=== PATIENT | female | born 1950 | race Caucasian/White ===

== ENCOUNTER 2018-12-04 07:12 | Inpatient (IN) | payer MEDICARE ==
[~2018-12-04] VITALS: Ht 162.6 cm; Wt 57.2 kg
[~2018-12-04 07:12] MED LIST: ALPR0.5T PO; PROP20TA7 PO; QUET150T2 PO; VENL150C2 PO; VERA180T25 PO
--- NOTE | 2018-12-04 07:12 | NUR ---
KYRA RA FROM HOME,CONSTIPATED DUE TO PAIN MEDICATIONS, FOR A SPINE SX NEXT WEEK, BLOOD NOTED IN HER STOOL THIS AM PROMPTING HER TO CALL 911. TO ER BED 6, HOOKED TO MONITOR, CHANGED TO GOWN, PROVIDED W WARM BLANKET, AWAITING MD DAHL.
--- NOTE | 2018-12-04 07:30 | NUR ---
DR BELTRÁN AT BEDSIDE
[2018-12-04 08:00] LABS: BASOPHILS % (AUTO) 0.3 % (0.0-2.0); EOSINOPHILS % (AUTO) 0.1 % (0.0-6.0); HEMATOCRIT 36 % (33-45); HEMOGLOBIN 12.6 g/dL (11.5-14.8); LYMPHOCYTES # (AUTO) 0.4 /CMM (0.8-4.8); LYMPHOCYTES % (AUTO) 4.6 % (20.0-44.0); MEAN CORPUSCULAR HGB CONC 35 g/dl (31.0-36.0); MEAN CORPUSCULAR VOLUME 98 fL (82-100); MONOCYTES # (AUTO) 0.8 /CMM (0.1-1.30); NEUTROPHILS # (AUTO) 8.3 /CMM (1.8-8.9); PLATELET COUNT (AUTO) 144 /CMM (150-450); RED BLOOD CELL COUNT(AUTO) 3.73 MIL/uL (4.0-5.2); WHITE BLOOD COUNT (AUTO) 9.5 K/uL (4.3-11.0)
[2018-12-04] MEDS ORDERED: IV NS 0.9% 1,000 ML BAG IV ONE (08:00)
--- NOTE | 2018-12-04 08:07 | NUR ---
PT WHEELED OUT VIA Influx FOR CT SCAN.
[2018-12-04 08:09] LABS: CALCIUM, SERUM 8.8 mg/dL (8.5-10.1); CREATININE 0.8 mg/dL (0.6-1.3)
[2018-12-04 08:14] LABS: ALBUMIN 3.4 g/dL (3.4-5.0); BILIRUBIN,DIRECT 0.1 mg/dL (0.0-0.2); BILIRUBIN,TOTAL 0.5 mg/dL (0.2-1.0); TOTAL PROTEIN, SERUM 6.2 g/dL (6.4-8.2)
[2018-12-04] MEDS ORDERED: ONDANSETRON HCL/PF 4 MG/2 ML VIAL IVP ONE (09:00)
[2018-12-04] MEDS ORDERED: PIPERACILLIN /TAZOBACTAM 3.375 G in IV D5W 50 ML IV ONE (09:00)
[2018-12-04] MEDS ORDERED: HYDROMORPHONE 1 MG/1 ML DISP.SYRIN IV ONE (09:00)
[2018-12-04] MEDS ORDERED: HYDROMORPHONE 1 MG/1 ML DISP.SYRIN ONE ×2 (09:05→09:09)
[2018-12-04] MEDS ORDERED: ONDANSETRON HCL/PF 4 MG/2 ML VIAL ONE ×2 (09:05→09:08)
--- NOTE | 2018-12-04 10:37 | NUR ---
REPORT GIVEN TO MS QUINTANILLA OF TELE UNIT
--- NOTE | 2018-12-04 11:30 | NUR ---
PT WHEELED OUT VIA GURNEY BY AN EMT. TRANSFERRED TO MS UNIT
--- NOTE | 2018-12-04 11:40 | NUR ---
ms rn received a new admission,68 year old female, came in w/ cc of abdominal pain w/ dx of colitis, under dr. lamb, awake,alert,oriented x4, not in any form of distress, respirations even and unlabored,no sob noted, will monitor patient's condition.
[2018-12-04 12:00] VITALS: BP 126/80
[2018-12-04] MEDS ORDERED: SUMA50TA17 PO (13:53)
[2018-12-04] MEDS ORDERED: SUMA100T16 PO (13:53)
[2018-12-04] MEDS ORDERED: Z GUARD REMEDY 2 OZ OINT TP PRN (14:30)
[2018-12-04] MEDS ORDERED: ONDANSETRON HCL/PF 4 MG/2 ML VIAL IVP PRN (14:30)
[2018-12-04] MEDS ORDERED: ACETAMINOPHEN 325 MG TABLET PO PRN (14:30)
[2018-12-04] MEDS: SUMATRIPTAN SUCCINATE 100 MG TABLET PO PRN (15:44)
[2018-12-04 16:00] VITALS: BP 121/79
--- NOTE | 2018-12-04 16:00 | NUR ---
ms international operations manager done w/ orders from zainab gil.
[2018-12-04] MEDS: PANTOPRAZOLE 40 MG VIAL IV SCH (17:47)
[2018-12-04] MEDS: PROPRANOLOL HCL 10 MG TABLET PO SCH (17:50)
--- NOTE | 2018-12-04 18:00 | NUR ---
ms rn due meds given,tolerated well.
[2018-12-04 18:17] LABS: BASOPHILS # (AUTO) 0.1 /CMM (0.0-0.2); BASOPHILS % (AUTO) 0.8 % (0.0-2.0); EOSINOPHILS % (AUTO) 0.7 % (0.0-6.0); HEMATOCRIT 37 % (33-45); HEMOGLOBIN 12.6 g/dL (11.5-14.8); LYMPHOCYTES # (AUTO) 0.9 /CMM (0.8-4.8); LYMPHOCYTES % (AUTO) 9.6 % (20.0-44.0); MEAN CORPUSCULAR HGB CONC 34 g/dl (31.0-36.0); MEAN CORPUSCULAR VOLUME 99 fL (82-100); MONOCYTES # (AUTO) 0.7 /CMM (0.1-1.30); MONOCYTES % (AUTO) 7.8 % (2.0-12.0); NEUTROPHILS # (AUTO) 7.5 /CMM (1.8-8.9); NEUTROPHILS % (AUTO) 81.1 % (43.0-81.0); PLATELET COUNT (AUTO) 140 /CMM (150-450); RED BLOOD CELL COUNT(AUTO) 3.77 MIL/uL (4.0-5.2); WHITE BLOOD COUNT (AUTO) 9.3 K/uL (4.3-11.0)
[2018-12-04 18:21] LABS: APPEARANCE,URINE CLEAR (CLEAR); BILIRUBIN,URINE NEGATIVE (NEGATIVE); BLOOD, URINE NEGATIVE Ery/uL (NEGATIVE); KETONES,URINE NEGATIVE (NEGATIVE); LEUKOCYTE ESTERASE ,URINE 1+ (NEGATIVE); NITRITE, URINE POSITIVE (NEGATIVE); PH,URINE 6.5 (5.0-8.0); PROTEIN,URINE NEGATIVE (NEGATIVE); UGLUCOSE NEGATIVE (NEGATIVE); UROBILINOGEN,URINE 0.2 EU/dL (0.2)
[2018-12-04 18:22] LABS: COLOR,URINE Light yellow (YELLOW)
[2018-12-04 18:48] LABS: BACTERIA,URINE Rare /HPF (None Seen); RBC,URINE 0-2 /HPF (0-2); SQUAMOUS EPITHELIAL CELL,UR Few /HPF (None Seen)
--- NOTE | 2018-12-04 19:25 | NUR ---
ms rn on bed, no distress noted, all needs attended, gave report to work distributor.
--- NOTE | 2018-12-04 19:50 | NUR ---
RN OPENING NOTES RECEIVED REPORT FROM DAYSHIFT RNLATISHA. FOUND Pt AWAKE, RESTING IN BED. Pt IS A/OX4, VERBAL, ABLE TO MAKE NEEDS KNOWN. NO S/S OF ACUTE DISTRESS OR SOB NOTED. IV ACCESS ON L HAND #20G, SL. SAFETY MEASURES IN PLACE. BED LOW, LOCKED, HOB ELEVATED, SIDE RAILS UP, CALL LIGHT AND BEDSIDE TABLE WITHIN REACH. WILL CONTINUE TO MONITOR Pt's CONDITION AND SAFETY THROUGHOUT THE NIGHT.
[2018-12-04 20:00] VITALS: BP 142/82
[2018-12-04 20:30] VITALS: BP 142/82
[2018-12-04] MEDS: ALPRAZOLAM 0.5 MG TABLET PO SCH (21:55)
[2018-12-04] MEDS: MAGNESIUM HYDROXIDE 30 ML UDC PO PRN (21:55)
--- NOTE | 2018-12-05 07:26 | NUR ---
RN CLOSING NOTES NO SIGNIFICANT CHANGES IN Pt's CONDITION. Pt IS STABLE AT THIS TIME. NO S/S OF ACUTE DISTRESS OR SOB NOTED DURING THE SHIFT. Pt IS RESTING IN BED COMFORTABLY. RESPIRATIONS EVEN AND UNLABORED. ALL NEEDS MET AND ATTENDED TO. SAFETY MEASURES IN PLACE. WILL ENDORSE TO DAYSHIFT RN FOR Pt's NILSON.
[2018-12-05 07:36] LABS: BASOPHILS % (AUTO) 0.3 % (0.0-2.0); HEMATOCRIT 39 % (33-45); HEMOGLOBIN 13.2 g/dL (11.5-14.8); LYMPHOCYTES # (AUTO) 0.6 /CMM (0.8-4.8); LYMPHOCYTES % (AUTO) 8.1 % (20.0-44.0); MEAN CORPUSCULAR HGB CONC 34 g/dl (31.0-36.0); MEAN CORPUSCULAR VOLUME 99 fL (82-100); MONOCYTES # (AUTO) 0.5 /CMM (0.1-1.30); MONOCYTES % (AUTO) 6.3 % (2.0-12.0); NEUTROPHILS # (AUTO) 6.2 /CMM (1.8-8.9); NEUTROPHILS % (AUTO) 84.3 % (43.0-81.0); PLATELET COUNT (AUTO) 147 /CMM (150-450); RED BLOOD CELL COUNT(AUTO) 3.96 MIL/uL (4.0-5.2); WHITE BLOOD COUNT (AUTO) 7.4 K/uL (4.3-11.0)
[2018-12-05 07:52] LABS: CALCIUM, SERUM 9.2 mg/dL (8.5-10.1); CREATININE 0.6 mg/dL (0.6-1.3); MAGNESIUM 2.3 mg/dL (1.8-2.4); PHOSPHORUS 2.6 mg/dL (2.5-4.9); POTASSIUM 4.3 mmol/L (3.5-5.1)
[2018-12-05 08:00] VITALS: BP 154/89
[2018-12-05] MEDS: PROPRANOLOL HCL 10 MG TABLET PO SCH ×2 (09:04→17:30)
[2018-12-05] MEDS: VENLAFAXINE XR 150 MG CAP.SR.24H PO SCH (09:05)
[2018-12-05 09:24] VITALS: BP 154/89
[2018-12-05] MEDS: MAGNESIUM HYDROXIDE 30 ML UDC PO PRN ×2 (10:28→22:17)
[2018-12-05] MEDS ORDERED: MAGNESIUM CITRATE 296 ML BOTTLE PO ONE (13:30)
[2018-12-05] MEDS ORDERED: PEG 3350/NA SULF,BICARB,CL/KCL 4,000 ML BOTTLE PO ONE (13:30)
[2018-12-05] MEDS ORDERED: NA PHOS,M-B/NA PHOS,DI-BA 1 EA ENEMA RC PRN (13:30)
--- NOTE | 2018-12-05 14:30 | NUR ---
PATIENT STARTED ON GOLYTELY
[2018-12-05 16:00] VITALS: BP 153/76
[2018-12-05 17:28] LABS: OCCULT BLOOD STOOL POSITIVE (NEGATIVE)
[2018-12-05] MEDS: hydrALAZINE HCL 25 MG TABLET PO SCH (17:30)
--- NOTE | 2018-12-05 17:55 | NUR ---
PATIENT ACCIDENTALLY PULED OUT IV LINE.
[2018-12-05] MEDS: PANTOPRAZOLE 40 MG VIAL IV SCH (18:08)
--- NOTE | 2018-12-05 19:04 | NUR ---
PATIENT A/OX4 , STABLE ON ROOM AIR . PATIENT WILL HAVE COLONOSCOPY AND EGD TOMORROW IN AM. NPO AFTER MIDNIGHT. PT CONSUMED 1/3 OF GOLYTELY AND HAD LOOSE DARK BM X8. WILL ENDORSE TO NEXT SHIFT FOR NILSON
--- NOTE | 2018-12-05 19:15 | NUR ---
MS RN OPENING NOTES Received patient A/O x4, awake, on left lateral position on bed. Denies discomfort at this time. On RA, no SOB/respiratory distress noted at this time. Patient noted ambulatory, self-care independent, refused assistance. With commode at bedside. On prep for colonoscopy tomorrow. With frequent small liquid stool noted. Kept bed low and locked, call light within easy reach. No IV meds at this time. For IV line insertion. Patient drinks fluid independently. Will continue to monitor accordingly.
[2018-12-05 20:00] VITALS: BP 136/96
[2018-12-05 20:06] VITALS: BP 136/96
--- NOTE | 2018-12-05 20:28 | NUR ---
MS RN NOTES Collected stool for ova & parasite exam as ordered. Notified laboratory, spoke with Uriel, that sample is ready for picker tender helper. Placed in storage accordingly.
[2018-12-05] MEDS: ALPRAZOLAM 0.5 MG TABLET PO SCH (21:19)
[2018-12-05] MEDS: QUETIAPINE FUMARATE 100 MG TABLET PO SCH (21:19)
[2018-12-05] MEDS: SUMATRIPTAN SUCCINATE 100 MG TABLET PO PRN (21:28)
--- NOTE | 2018-12-05 22:00 | NUR ---
Patient is alert and pleasant,lives locally with family. She is ambulatory and independent with adl's. Has no DME or homehealth reported. Spouse will provide ride when discharge. Addendum: 12/05/18 at 2200 by REJI CONNOR RN Amended: Links added.
[2018-12-05] MEDS: ZOLPIDEM TARTRATE 5 MG TABLET PO PRN (22:17)
--- NOTE | 2018-12-06 05:00 | NUR ---
MS RN NOTES Patient is disturb of the roommate's disruptive behavior. Room changed to [facility]. Patient feeling comfortable in the new room. Secured patient's belongings at bedside accounted and transfer to [facility]. Kept patient comfortable on bed, call light within easy reach. Will continue to monitor accordingly.
--- NOTE | 2018-12-06 05:39 | NUR ---
MS RN NOTES Patient complaint her heart is racing. Assessed the patient's V/S BP 173/97mmHg, FL 112bpm. RR 20, regular, SpO2 97%. Patient denies N/V, dizziness. Skin warm and dry. Patient complaint generalized abdominal pain 01/26. Patient remained on NPO, with Golytely prep for colonoscopy scheduled today. Sent a page to bus person MD, Dr. Madisyn Walls. Awaiting for call back at this time.
--- NOTE | 2018-12-06 07:00 | NUR ---
RECEIVED PATIENT IN BED , BP 170/89 HR 104. PATIENT COMPLAINS OF CHEST PAIN
--- NOTE | 2018-12-06 07:01 | NUR ---
MS RN CLOSING NOTES Patient noted asleep at this time. Remained on RA, no dyspnea/respiratory distress noted. All nursing needs attended. Due meds given as ordered. No ASE noted. Able to finish the golytely prep with clear stool noted. For Colonoscopy today. Endorsed to the next shift with the possible order of PRN BP and pain meds.
--- NOTE | 2018-12-06 07:20 | NUR ---
PATIENT SEEN BY
[2018-12-06 08:00] VITALS: BP_SYST 145; BP_SYST 170; BP_DIAS 96
[2018-12-06] MEDS: hydrALAZINE HCL 25 MG TABLET PO SCH ×3 (08:11→17:09)
[2018-12-06] MEDS: VENLAFAXINE XR 150 MG CAP.SR.24H PO SCH (08:11)
[2018-12-06] MEDS: PROPRANOLOL HCL 10 MG TABLET PO SCH ×3 (08:11→17:10)
[2018-12-06] MEDS: NITROGLYCERIN 30 GM TUBE TP SCH ×2 (10:35→21:17)
[2018-12-06] MEDS ORDERED: ANESTHESIA TRAY IN PYXIS 1 EA TRAY MC ONE (12:25)
--- NOTE | 2018-12-06 14:00 | NUR ---
patient back to room from OR. Patient awake a/o x3 , vs are stable and within normal range. Resume previous diet and orders.
[2018-12-06 16:00] VITALS: BP 118/70
[2018-12-06] MEDS: PANTOPRAZOLE 40 MG VIAL IV SCH (17:10)
--- NOTE | 2018-12-06 18:29 | NUR ---
PATIENT RESTING IN BED , FRIEND AT BEDSIDE. PT TOLERATED CLEAR LIQUID DIET. ALL NEEDS ATTENDED. NO COMPLAIN OF PAIN OR DISCOMFORT. IV LINE INTACT AND PATENT. WILL ENDORSE TO NEXT SHIFT FOR NILSON.
--- NOTE | 2018-12-06 19:30 | NUR ---
MS RN OPENING NOTES Received patient A/O x4, awake on bed, no discomfort noted. On RA, no SOB/respiratory distress noted. With patent peripheral IV line LFA G#20 SL. S/P EGD and colonoscopy. On clear liquid diet. Kept bed low and locked, siderails x2 up, call light within easy reach. Will continue to monitor accordingly.
[2018-12-06 20:00] VITALS: BP 164/82
[2018-12-06] MEDS: ALPRAZOLAM 0.5 MG TABLET PO SCH (21:15)
[2018-12-06] MEDS: QUETIAPINE FUMARATE 100 MG TABLET PO SCH (21:17)
[2018-12-07] MEDS: ZOLPIDEM TARTRATE 5 MG TABLET PO PRN (00:17)
[2018-12-07] MEDS ORDERED: SUMATRIPTAN SUCCINATE 25 MG TABLET ONE (00:45)
--- NOTE | 2018-12-07 06:31 | NUR ---
MS RN CLOSING NOTES Patient noted asleep at this time. Patient noted ambulatory with steady gait, independent in attending personal needs and ADLs. All due meds given as ordered, tolerated well, no ASE noted. Headache noted resolved with PRN Imitrex as ordered. No new complaints made, afebrile the whole shift. Kept bed low and locked, call light within easy reach. Endorsed to the next shift.
--- NOTE | 2018-12-07 07:47 | NUR ---
MS RN OPENING NOTES RECEIVED PT IN BED, AWAKE, A/O X3-4. TOLERATING RA, WITH NO ACUTE RESPIRATORY DISTRESS NOTED. PT DENIES ANY PAIN AT THIS MOMENT. PT CONCERN WHEN CAN SHE GET REAL FOOD AND DISCHARGE. RN TO F/U WITH MD FIRST AND WILL UPDATE PT. PIV TO LFA G20 SL, FLUSHED WITH NS, INTACT AND OPERATIONAL. PT KEPT COMFORTABLE. PT'S BED IN LOWEST, LOCKED POSITION WITH SR X2. CALL LIGHT KEPT WITHIN REACH. WILL CONTINUE PLAN OF CARE.
[2018-12-07 08:00] VITALS: BP 143/110
[2018-12-07] MEDS: VENLAFAXINE XR 150 MG CAP.SR.24H PO SCH (08:35)
[2018-12-07] MEDS: PROPRANOLOL HCL 10 MG TABLET PO SCH ×2 (08:37→12:05)
[2018-12-07] MEDS: hydrALAZINE HCL 25 MG TABLET PO SCH ×2 (08:37→12:04)
[2018-12-07] MEDS ORDERED: VERAPAMIL SR 180 MG TABLET.SA PO SCH (09:00)
[2018-12-07] MEDS: NITROGLYCERIN 30 GM TUBE TP SCH (09:00)
[2018-12-07 12:05] VITALS: BP 154/92
--- NOTE | 2018-12-07 15:20 | NUR ---
WALL CLEANER NOTES PT ALERT/ORIENTED 3-4. TO DISCHARGE HOME ACCOMPANIED BY FRIEND PRESENT BEDSIDE. PT ADVANCE TO REGULAR DIET AT LUNCH TIME AND TOLERATED WELL. REVIEWED AND SIGNED PT'S DISCHARGE INSTRUCTIONS, INVENTORY LIST WITH PT. SKIN INTACT PER PT, NO PHOTOS TAKEN. VS STABLE AND RECORDED. PT WHEELED TO THE LOBBY VIA WHEELCHAIR BY RN AND ACCOMPANIED BY FRIEND. F/U WITH DR. QUINTANILLA IN 1-2 WEEKS REMINDED, CARD GIVEN TO PT. ALL NEEDS AND CARE ATTENDED. PT VERBALIZED GRATEFUL FOR THE CARE STAFFS HAD GIVEN TO HER. PT LEFT TE UNIT AT 1515. MD AND CN AWARE.
== END 2018-12-07 15:10 | disposition home or self-care (01) | DRG 386 ==
LOC: ER 07:14 → MED 10:35
PROVIDERS: ADMIT Internal Medicine; ATTEND Internal Medicine
PROC: 0DB78ZX Excision of Stomach, Pylorus, Via Natural or Artificial Opening Endoscopic, Diagnostic (ICD-10-PCS; principal; 2018-12-06)
PROC: 0DBL8ZX Excision of Transverse Colon, Via Natural or Artificial Opening Endoscopic, Diagnostic (ICD-10-PCS; 2018-12-06)
DX: K51.90 Ulcerative colitis, unspecified, without complications (principal); K56.7 Ileus, unspecified; F31.81 Bipolar II disorder; I10 Essential (primary) hypertension; G25.0 Essential tremor; M41.9 Scoliosis, unspecified; Z98.890 Other specified postprocedural states; Z88.5 Allergy status to narcotic agent; Z88.2 Allergy status to sulfonamides; Z88.8 Allergy status to other drugs, medicaments and biological substances; Z79.899 Other long term (current) drug therapy; Z98.1 Arthrodesis status; Z90.710 Acquired absence of both cervix and uterus; Z87.440 Personal history of urinary (tract) infections; K44.9 Diaphragmatic hernia without obstruction or gangrene; F41.1 Generalized anxiety disorder; T50.905A Adverse effect of unspecified drugs, medicaments and biological substances, initial encounter; Y92.009 Unspecified place in unspecified non-institutional (private) residence as the place of occurrence of the external cause; M47.9 Spondylosis, unspecified; K29.70 Gastritis, unspecified, without bleeding
CPT/HCPCS: 36415; 71045-TC; 80048-TC; 80061-TC; 80076-TC; 81000-TC; 82272-TC; 83605-TC; 83735-TC; 84100-TC; 85025-TC; 85730-TC; 87045-TC; 87081-TC; 87086-TC; 87177; 87209; 88305-TC; 88313-TC; 88342; 89055; 93307-TC; C9113; G0378; J1170; J2405; J2543; J2704; J3490; J7060

== ENCOUNTER 2020-03-18 13:48 | Outpatient (CLI) | payer MEDICARE ==
[~2020-03-18 13:48] MED LIST changes: +SUMA100T16 PO; +SUMA50TA17 PO
[2020-03-18 15:54] LABS: BASOPHILS % (AUTO) 0.5 % (0.0-2.0); EOSINOPHILS % (AUTO) 2.2 % (0.0-6.0); HEMATOCRIT 38 % (33-45); HEMOGLOBIN 12.6 g/dL (11.5-14.8); LYMPHOCYTES # (AUTO) 0.9 /CMM (0.8-4.8); LYMPHOCYTES % (AUTO) 15.4 % (20.0-44.0); MEAN CORPUSCULAR HGB CONC 33 g/dl (31.0-36.0); MEAN CORPUSCULAR VOLUME 98 fL (82-100); MONOCYTES # (AUTO) 0.5 /CMM (0.1-1.30); MONOCYTES % (AUTO) 9.3 % (2.0-12.0); NEUTROPHILS # (AUTO) 4.1 /CMM (1.8-8.9); NEUTROPHILS % (AUTO) 72.6 % (43.0-81.0); PLATELET COUNT (AUTO) 138 /CMM (150-450); RED BLOOD CELL COUNT(AUTO) 3.88 MIL/uL (4.0-5.2); WHITE BLOOD COUNT (AUTO) 5.7 K/uL (4.3-11.0)
[2020-03-18 16:00] LABS: ALBUMIN 3.8 g/dL (3.4-5.0); BILIRUBIN,TOTAL 0.3 mg/dL (0.2-1.0); CALCIUM, SERUM 9.1 mg/dL (8.5-10.1); CREATININE 0.7 mg/dL (0.6-1.3); TOTAL PROTEIN, SERUM 6.8 g/dL (6.4-8.2)
== END 2020-03-18 23:59 | disposition home or self-care (01) ==
LOC: MSC 13:48
PROVIDERS: ATTEND Internal Medicine
DX: M48.061 Spinal stenosis, lumbar region without neurogenic claudication (principal); G62.9 Polyneuropathy, unspecified; I10 Essential (primary) hypertension; R19.7 Diarrhea, unspecified; M25.559 Pain in unspecified hip; F41.8 Other specified anxiety disorders; G43.909 Migraine, unspecified, not intractable, without status migrainosus; L51.1 Stevens-Johnson syndrome; T50.905A Adverse effect of unspecified drugs, medicaments and biological substances, initial encounter; R25.1 Tremor, unspecified; R33.9 Retention of urine, unspecified; K21.9 Gastro-esophageal reflux disease without esophagitis; G47.00 Insomnia, unspecified; Z91.09 Other allergy status, other than to drugs and biological substances; Z79.899 Other long term (current) drug therapy
CPT/HCPCS: 36415; 71045; 80053; 85025; 85730; G0463

== ENCOUNTER 2020-05-06 13:13 | Outpatient (CLI) | payer MEDICARE | END 2020-05-06 23:59 | disposition home or self-care (01) | LOC: MSC 13:13 | PROVIDERS: ATTEND Internal Medicine | DX: M48.061 Spinal stenosis, lumbar region without neurogenic claudication (principal); G62.9 Polyneuropathy, unspecified; K58.0 Irritable bowel syndrome with diarrhea; I10 Essential (primary) hypertension; M25.559 Pain in unspecified hip; F32.9 Major depressive disorder, single episode, unspecified; G43.909 Migraine, unspecified, not intractable, without status migrainosus; K21.9 Gastro-esophageal reflux disease without esophagitis; G47.00 Insomnia, unspecified; R33.9 Retention of urine, unspecified; L51.1 Stevens-Johnson syndrome; T39.395D Adverse effect of other nonsteroidal anti-inflammatory drugs [NSAID], subsequent encounter ==

== ENCOUNTER 2020-05-20 12:30 | Outpatient (CLI) | payer MEDICARE | END 2020-05-20 23:59 | disposition home or self-care (01) | LOC: MSC 12:30 | PROVIDERS: ATTEND Internal Medicine | DX: M48.061 Spinal stenosis, lumbar region without neurogenic claudication (principal); G62.9 Polyneuropathy, unspecified; I10 Essential (primary) hypertension; K58.9 Irritable bowel syndrome, unspecified; M25.559 Pain in unspecified hip; F33.9 Major depressive disorder, recurrent, unspecified; G43.909 Migraine, unspecified, not intractable, without status migrainosus; R39.14 Feeling of incomplete bladder emptying; K21.9 Gastro-esophageal reflux disease without esophagitis; G47.00 Insomnia, unspecified; Z79.899 Other long term (current) drug therapy | CPT/HCPCS: 93005; G0463 ==

== ENCOUNTER 2020-06-03 12:22 | Outpatient (CLI) | payer MEDICARE ==
[2020-06-03 13:56] LABS: BASOPHILS # (AUTO) 0.2 /CMM (0.0-0.2); BASOPHILS % (AUTO) 2.3 % (0.0-2.0); EOSINOPHILS % (AUTO) 1.3 % (0.0-6.0); HEMATOCRIT 38 % (33-45); LYMPHOCYTES # (AUTO) 0.8 /CMM (0.8-4.8); LYMPHOCYTES % (AUTO) 10.9 % (20.0-44.0); MEAN CORPUSCULAR HGB CONC 32 g/dl (31.0-36.0); MEAN CORPUSCULAR VOLUME 92 fL (82-100); MONOCYTES # (AUTO) 0.4 /CMM (0.1-1.30); MONOCYTES % (AUTO) 5.1 % (2.0-12.0); NEUTROPHILS % (AUTO) 80.4 % (43.0-81.0); PLATELET COUNT (AUTO) 231 /CMM (150-450); RED BLOOD CELL COUNT(AUTO) 4.14 MIL/uL (4.0-5.2); WHITE BLOOD COUNT (AUTO) 7.5 K/uL (4.3-11.0)
[2020-06-03 14:10] LABS: ALBUMIN 4.1 g/dL (3.4-5.0); BILIRUBIN,TOTAL 0.3 mg/dL (0.2-1.0); CALCIUM, SERUM 9.9 mg/dL (8.5-10.1); CREATININE 0.7 mg/dL (0.6-1.3); POTASSIUM 4.5 mmol/L (3.5-5.1); TOTAL PROTEIN, SERUM 7.7 g/dL (6.4-8.2)
[2020-06-03 14:19] LABS: THYROID STIMULATING HORMONE 2.267 uIU/mL (0.358-3.74)
== END 2020-06-03 23:59 | disposition home or self-care (01) ==
LOC: MSC 12:22
PROVIDERS: ATTEND Internal Medicine
DX: I10 Essential (primary) hypertension (principal); G62.9 Polyneuropathy, unspecified; K58.9 Irritable bowel syndrome, unspecified; M25.559 Pain in unspecified hip; F33.9 Major depressive disorder, recurrent, unspecified; G43.909 Migraine, unspecified, not intractable, without status migrainosus; K21.9 Gastro-esophageal reflux disease without esophagitis; R25.1 Tremor, unspecified; R39.14 Feeling of incomplete bladder emptying; G47.00 Insomnia, unspecified; Z98.1 Arthrodesis status; Z79.899 Other long term (current) drug therapy
CPT/HCPCS: 36415; 80053; 84443; 85025; G0463

== ENCOUNTER 2020-06-22 08:30 | Outpatient (CLI) | payer MEDICARE | END 2020-06-22 23:59 | disposition home or self-care (01) | LOC: MSC 08:30 | PROVIDERS: ATTEND Internal Medicine | DX: J32.9 Chronic sinusitis, unspecified (principal); I10 Essential (primary) hypertension; Z98.890 Other specified postprocedural states; K58.9 Irritable bowel syndrome, unspecified; F33.9 Major depressive disorder, recurrent, unspecified; G62.9 Polyneuropathy, unspecified; M25.559 Pain in unspecified hip; G43.909 Migraine, unspecified, not intractable, without status migrainosus; R25.1 Tremor, unspecified; R39.14 Feeling of incomplete bladder emptying; K21.9 Gastro-esophageal reflux disease without esophagitis; G47.00 Insomnia, unspecified; R19.7 Diarrhea, unspecified; L51.1 Stevens-Johnson syndrome; T39.395D Adverse effect of other nonsteroidal anti-inflammatory drugs [NSAID], subsequent encounter | CPT/HCPCS: C9803; G0463; U0003 ==

== ENCOUNTER 2020-07-22 12:29 | Outpatient (CLI) | payer MEDICARE | END 2020-07-22 23:59 | disposition home or self-care (01) | LOC: MSC 12:29 | PROVIDERS: ATTEND Internal Medicine | DX: I10 Essential (primary) hypertension (principal); M25.559 Pain in unspecified hip; J32.9 Chronic sinusitis, unspecified; K58.9 Irritable bowel syndrome, unspecified; F32.9 Major depressive disorder, single episode, unspecified; G62.9 Polyneuropathy, unspecified; G43.909 Migraine, unspecified, not intractable, without status migrainosus; R33.9 Retention of urine, unspecified; K21.9 Gastro-esophageal reflux disease without esophagitis; G47.00 Insomnia, unspecified; L51.1 Stevens-Johnson syndrome; Z79.899 Other long term (current) drug therapy ==

== ENCOUNTER 2020-08-22 13:21 | Outpatient (CLI) | payer MEDICARE ==
[2020-08-22 15:14] LABS: BASOPHILS # (AUTO) 0.1 /CMM (0.0-0.2); BASOPHILS % (AUTO) 1.5 % (0.0-2.0); HEMATOCRIT 39 % (33-45); HEMOGLOBIN 12.5 g/dL (11.5-14.8); LYMPHOCYTES # (AUTO) 0.8 /CMM (0.8-4.8); LYMPHOCYTES % (AUTO) 14.8 % (20.0-44.0); MEAN CORPUSCULAR HGB CONC 32 g/dl (31.0-36.0); MEAN CORPUSCULAR VOLUME 91 fL (82-100); MONOCYTES # (AUTO) 0.5 /CMM (0.1-1.30); MONOCYTES % (AUTO) 8.9 % (2.0-12.0); NEUTROPHILS # (AUTO) 3.9 /CMM (1.8-8.9); NEUTROPHILS % (AUTO) 73.8 % (43.0-81.0); PLATELET COUNT (AUTO) 183 /CMM (150-450); RED BLOOD CELL COUNT(AUTO) 4.26 MIL/uL (4.0-5.2); WHITE BLOOD COUNT (AUTO) 5.3 K/uL (4.3-11.0)
[2020-08-22 16:11] LABS: ALBUMIN 3.8 g/dL (3.4-5.0); BILIRUBIN,TOTAL 0.4 mg/dL (0.2-1.0); CALCIUM, SERUM 9.3 mg/dL (8.5-10.1); CREATININE 0.7 mg/dL (0.6-1.3); POTASSIUM 4.1 mmol/L (3.5-5.1); TOTAL PROTEIN, SERUM 7.2 g/dL (6.4-8.2)
== END 2020-08-22 23:59 | disposition home or self-care (01) ==
LOC: MSC 13:21
PROVIDERS: ATTEND Internal Medicine
DX: Z01.818 Encounter for other preprocedural examination (principal); I10 Essential (primary) hypertension; M25.559 Pain in unspecified hip; M48.061 Spinal stenosis, lumbar region without neurogenic claudication; K58.9 Irritable bowel syndrome, unspecified; F33.9 Major depressive disorder, recurrent, unspecified; F41.1 Generalized anxiety disorder; G62.9 Polyneuropathy, unspecified; G43.909 Migraine, unspecified, not intractable, without status migrainosus; Z91.09 Other allergy status, other than to drugs and biological substances; Z79.899 Other long term (current) drug therapy; K21.9 Gastro-esophageal reflux disease without esophagitis; G47.00 Insomnia, unspecified; R33.9 Retention of urine, unspecified; R25.1 Tremor, unspecified; F10.21 Alcohol dependence, in remission; Z87.440 Personal history of urinary (tract) infections; Z88.6 Allergy status to analgesic agent; Z88.1 Allergy status to other antibiotic agents
CPT/HCPCS: 36415; 71046; 80053; 85025; 85610; 85730; 93005; G0463

== ENCOUNTER 2020-11-16 09:54 | Outpatient (CLI) | payer MEDICARE | END 2020-11-16 23:59 | disposition home or self-care (01) | LOC: MSC 09:54 | PROVIDERS: ATTEND Internal Medicine | DX: I10 Essential (primary) hypertension (principal); M25.559 Pain in unspecified hip; K58.9 Irritable bowel syndrome, unspecified; F33.9 Major depressive disorder, recurrent, unspecified; G62.9 Polyneuropathy, unspecified; G43.909 Migraine, unspecified, not intractable, without status migrainosus; R25.1 Tremor, unspecified; R39.14 Feeling of incomplete bladder emptying; K21.9 Gastro-esophageal reflux disease without esophagitis; G47.00 Insomnia, unspecified; L51.1 Stevens-Johnson syndrome; T39.395D Adverse effect of other nonsteroidal anti-inflammatory drugs [NSAID], subsequent encounter; Z79.899 Other long term (current) drug therapy ==

== ENCOUNTER 2021-01-12 09:00 | Outpatient (CLI) | payer MEDICARE | END 2021-01-12 23:59 | disposition home or self-care (01) | LOC: MSC 09:00 | PROVIDERS: ATTEND Internal Medicine | DX: R20.2 Paresthesia of skin (principal); G43.809 Other migraine, not intractable, without status migrainosus; I10 Essential (primary) hypertension; M48.061 Spinal stenosis, lumbar region without neurogenic claudication; F33.9 Major depressive disorder, recurrent, unspecified; E78.00 Pure hypercholesterolemia, unspecified; E87.1 Hypo-osmolality and hyponatremia; F41.1 Generalized anxiety disorder ==

== ENCOUNTER 2021-02-23 09:58 | Outpatient (CLI) | payer MEDICARE | END 2021-02-23 23:59 | disposition home or self-care (01) | LOC: MSC 09:58 | PROVIDERS: ATTEND Internal Medicine | DX: M48.061 Spinal stenosis, lumbar region without neurogenic claudication (principal); M54.16 Radiculopathy, lumbar region; R20.2 Paresthesia of skin; G43.909 Migraine, unspecified, not intractable, without status migrainosus; M25.559 Pain in unspecified hip; I10 Essential (primary) hypertension; F33.9 Major depressive disorder, recurrent, unspecified; E78.00 Pure hypercholesterolemia, unspecified; R19.7 Diarrhea, unspecified; E87.1 Hypo-osmolality and hyponatremia; L51.1 Stevens-Johnson syndrome; F41.1 Generalized anxiety disorder; G47.00 Insomnia, unspecified ==

== ENCOUNTER 2021-04-06 09:10 | Outpatient (CLI) | payer MEDICARE | END 2021-04-06 23:59 | disposition home or self-care (01) | LOC: MSC 09:10 | PROVIDERS: ATTEND Internal Medicine | DX: I10 Essential (primary) hypertension (principal); M48.00 Spinal stenosis, site unspecified; M54.10 Radiculopathy, site unspecified; G43.909 Migraine, unspecified, not intractable, without status migrainosus; G43.809 Other migraine, not intractable, without status migrainosus; Z76.0 Encounter for issue of repeat prescription; F33.9 Major depressive disorder, recurrent, unspecified; E78.00 Pure hypercholesterolemia, unspecified; R19.7 Diarrhea, unspecified; E87.1 Hypo-osmolality and hyponatremia; L51.1 Stevens-Johnson syndrome; F41.1 Generalized anxiety disorder; M25.559 Pain in unspecified hip; L65.9 Nonscarring hair loss, unspecified; Z79.899 Other long term (current) drug therapy ==

== ENCOUNTER 2021-06-23 16:10 | Emergency (ER) | payer MEDICARE ==
[~2021-06-23] VITALS: Ht 165.1 cm; Wt 63.5 kg
--- NOTE | 2021-06-23 16:57 | NUR ---
LAB CALLED FOR DRAW
[2021-06-23 16:59] LABS: BASOPHILS # (AUTO) 0.1 K/uL (0.0-0.2); BASOPHILS % (AUTO) 0.7 % (0.0-2.0); EOSINOPHILS % (AUTO) 0.3 % (0.0-6.0); HEMATOCRIT 44 % (33-45); HEMOGLOBIN 14.5 g/dL (11.5-14.8); LYMPHOCYTES # (AUTO) 1.2 K/uL (0.8-4.8); LYMPHOCYTES % (AUTO) 13.2 % (20.0-44.0); MEAN CORPUSCULAR HGB CONC 33 g/dl (31.0-36.0); MEAN CORPUSCULAR VOLUME 96 fL (82-100); MONOCYTES # (AUTO) 0.7 K/uL (0.1-1.30); MONOCYTES % (AUTO) 7.6 % (2.0-12.0); NEUTROPHILS # (AUTO) 7.1 K/uL (1.8-8.9); NEUTROPHILS % (AUTO) 78.2 % (43.0-81.0); PLATELET COUNT (AUTO) 155 K/uL (150-450); RED BLOOD CELL COUNT(AUTO) 4.53 MIL/uL (4.0-5.2); WHITE BLOOD COUNT (AUTO) 9.1 K/uL (4.3-11.0)
[2021-06-23] MEDS ORDERED: DILT30TA35 PO (17:08)
[2021-06-23] MEDS ORDERED: ATOR20TA PO (17:08)
[2021-06-23] MEDS ORDERED: BACL10TA PO (17:08)
[2021-06-23] MEDS ORDERED: DULO30CA52 PO (17:08)
[2021-06-23] MEDS ORDERED: PROP20TA19 PO (17:08)
[2021-06-23] MEDS ORDERED: NORT50CA PO (17:08)
[2021-06-23 17:19] LABS: CALCIUM, SERUM 9.4 mg/dL (8.5-10.1); CREATININE 0.6 mg/dL (0.6-1.3); POTASSIUM 4.1 mmol/L (3.5-5.1)
--- NOTE | 2021-06-23 21:45 | NUR ---
Patient discharged to home in stable condition. Rx and Written and verbal after care instructions given. Patient verbalizes understanding of instruction.
[2021-06-23 23:05] VITALS: BP 149/77
== END 2021-06-23 21:45 | disposition home or self-care (01) ==
LOC: ER 16:11
DX: R42 Dizziness and giddiness (principal); R53.1 Weakness; I10 Essential (primary) hypertension; F32.9 Major depressive disorder, single episode, unspecified; F41.9 Anxiety disorder, unspecified; Z98.890 Other specified postprocedural states; Z88.2 Allergy status to sulfonamides; Z88.6 Allergy status to analgesic agent; Z60.2 Problems related to living alone; Z79.899 Other long term (current) drug therapy
CPT/HCPCS: 36415; 70450-TC; 80048-TC; 85025-TC; 85730-TC; 86850-TC

== ENCOUNTER 2025-01-08 13:04 | Emergency (ER) | payer MEDICARE ==
[~2025-01-08] VITALS: Ht 162.6 cm; Wt 61.2 kg
[~2025-01-08 13:04] MED LIST changes: +ATOR10TA PO; +ATOR20TA PO; +BACL10TA PO; +DILT120C87 PO; +DILT30TA35 PO; +DULO30CA52 PO; +DULO60CA64 PO; +LORA-259 PO; +NORT50CA PO; +PROP20TA19 PO; -PROP20TA7 PO; +QUET100T PO; -SUMA50TA17 PO; -VENL150C2 PO; -VERA180T25 PO
[2025-01-08 13:24] VITALS: TEMP 98.1
[2025-01-08] MEDS ORDERED: HYDR-4303 PO (14:53)
[2025-01-08 15:39] VITALS: BP 135/85; O2SAT 99
== END 2025-01-08 15:15 | disposition home or self-care (01) ==
LOC: ER 13:17
DX: S52.592A Other fractures of lower end of left radius, initial encounter for closed fracture (principal); F32.A Depression, unspecified; F41.9 Anxiety disorder, unspecified; I10 Essential (primary) hypertension; Z79.899 Other long term (current) drug therapy; Z88.2 Allergy status to sulfonamides; Z88.5 Allergy status to narcotic agent; Z88.6 Allergy status to analgesic agent; Z87.19 Personal history of other diseases of the digestive system; Z87.39 Personal history of other diseases of the musculoskeletal system and connective tissue; Z60.2 Problems related to living alone; W01.0XXA Fall on same level from slipping, tripping and stumbling without subsequent striking against object, initial encounter; Y93.89 Activity, other specified; Y92.480 Sidewalk as the place of occurrence of the external cause; Y99.8 Other external cause status
CPT/HCPCS: 73110

== ENCOUNTER 2025-07-06 10:18 | Emergency (ER) | payer MEDICARE ==
[~2025-07-06] VITALS: Ht 162.6 cm; Wt 56.7 kg
[~2025-07-06 10:18] MED LIST changes: +HYDR-4303 PO
[2025-07-06 15:21] VITALS: BP 130/80; TEMP 98.5; O2SAT 99
== END 2025-07-06 15:00 | disposition home or self-care (01) ==
LOC: ER 10:19
DX: S80.02XA Contusion of left knee, initial encounter (principal); I10 Essential (primary) hypertension; F32.A Depression, unspecified; F41.9 Anxiety disorder, unspecified; M41.9 Scoliosis, unspecified; Z79.899 Other long term (current) drug therapy; Z88.2 Allergy status to sulfonamides; Z88.5 Allergy status to narcotic agent; Z88.6 Allergy status to analgesic agent; Z60.2 Problems related to living alone; W01.0XXA Fall on same level from slipping, tripping and stumbling without subsequent striking against object, initial encounter; Y93.89 Activity, other specified; Y92.89 Other specified places as the place of occurrence of the external cause; Y99.9 Unspecified external cause status
CPT/HCPCS: 73564-TC; 73700-TC